=== PATIENT | male | born 1970 | race Caucasian/White ===

== ENCOUNTER 2019-04-13 10:09 | Emergency (ER) | payer MEDICAID ==
[~2019-04-13] VITALS: Ht 167.6 cm; Wt 81.8 kg
[~2019-04-13 10:09] MED LIST: CEPH500 PO; DICL75TA5 PO; GABA-531 PO
[2019-04-13 12:22] VITALS: BP 131/87
== END 2019-04-13 12:24 | disposition home or self-care (01) ==
LOC: EMS 10:11
DX: T83.192A Other mechanical complication of indwelling ureteral stent, initial encounter (principal); Y84.6 Urinary catheterization as the cause of abnormal reaction of the patient, or of later complication, without mention of misadventure at the time of the procedure